=== PATIENT | female | born 1950 | race Caucasian/White ===

== ENCOUNTER → 2018-01-28 10:01 | Outpatient (CLI) | payer MEDICARE, OTHER, SELFPAY ==
--- NOTE | 2018-01-28 10:07 | RAD_ITS ---
STUDY: X-RAY - PELVIS AND LEFT HIP REASON FOR EXAM: Female, 67 years old. Chronic pain since October, history of infection 2 years ago. Scheduled for injection x-ray. TECHNIQUE: Radiological exam, hip, unilateral, with pelvis when performed; 1 view COMPARISON: None. FINDINGS: There is a non-specific bowel gas pattern. Normal visualized soft tissue structures. Mild arthropathy right sacroiliac joint.. Normal bilateral superior and inferior pubic rami. Normal pubic symphysis. Normal bilateral ischial tuberosities. Total right hip arthroplasty. There is osteoarthritic spur formation of the left acetabular rim. There is mild articular joint space narrowing of the left hip. RAD/Hip 2-3 Views with Pelvis IMPRESSION: Mild degenerative changes. Prior right total hip arthroplasty. Electronically Signed: Oralia Ann MD at 4:30 EDT , Service support ,
== END ==
PROVIDERS: Family Provider Family Medicine; PCP Family Medicine; Visit Provider Anesthesiology Pain Medicine
DX: M25.559 Pain in unspecified hip (principal)
CPT/HCPCS: 73502

== ENCOUNTER 2020-08-22 09:06 | Day surgery (SDC) | payer MEDICARE, OTHER, SELFPAY ==
--- NOTE | 2020-08-20 12:09 | PCM.HP.BLA ---
History and Physical Date of Admission: 08/22/20 HISTORY AND PHYSICAL ? Estrella Paez 1950 ? ? REFERRING PHYSICIAN: Wilmer Roth III, MD ? CHIEF COMPLAINT: Mammogram Abnormality ? HPI: The patient is a 70 year old female presents with abnormal left breast mammograms and findings of radial scar by pathology. She denies palpable breast masses. She denies nipple discharge. She denies breast pain. She denies previous breast biopsies or breast surgery. ? 07/25/2020 IMPRESSION: SUSPICIOUS FINDING - BIOPSY SHOULD BE CONSIDERED The 6 mm asymmetry in the left breast is suspicious of malignancy. ?(only seen in one view - CC) A stereotactic biopsy is recommended. ? Findings of radial scar by pathology from stereotactic breast biopsy 08/08/2020. ? PAST MEDICAL HISTORY ? Essential hypertension, benign ? ? Hypercalcemia 04/08/2017 ? Hyperlipidemia ? ? TG slightly high and LDL was high ? Hyperparathyroidism (HCC) 04/08/2017 ? IBS (irritable bowel syndrome) ? ? Mental disorder ? ? Statin intolerance ? ? tried 5 statins and severe muscle pain ? PAST SURGICAL HISTORY ? APPENDECTOMY HX ? 1973 ? COLONOSCOP W/ OR W/O [facility] SPEC ? 07/19/11 ? Colonoscopy [place] ? COLONOSCOP W/ OR W/O [facility] SPEC ? 01/19/2014 ? Colonoscopy ? COLONOSCOP W/ OR W/O [facility] SPEC ? 03/19/2017 ? Colonoscopy [facility] ? PAST SURGICAL HISTORY OF ? 1998 ? Hysterectomy ? PAST SURGICAL HISTORY OF ? 05/2008 and 10/2010 ? Right hip replacement ? PAST SURGICAL HISTORY OF ? 12/2001 ? foot surgery ? PAST SURGICAL HISTORY OF ? 06/2006 ? Arthroscopic knee surgery ? PAST SURGICAL HISTORY OF ? 09/15/2009 ? Hemorrhoidectomy, Dr Greg Darden ? PAST SURGICAL HISTORY OF ? 2016 ? Rectopexy ? SIGMOIDOSCOPY FLEX DIAG ? 06/16/15 ? Sigmoidoscopy, flexible ? TONSILLECTOMY HX ? 1961 ? TUBAL LIGATION, ? 1983 ? VITRECTOMY,MECHANICAL Right ? ? right retina detachment. ? ? Current Outpatient Medications ? zolpidem (AMBIEN) 10 mg Take 0.5-1 tablets by mouth at bedtime as needed for up to 45 days. ? venlafaxine ER (EFFEXOR XR) 37.5 mg 24 hr capsule Take 1 capsule by mouth once daily. ? amLODIPine (NORVASC) 5 mg tablet Take 1 tablet by mouth once daily. ? Hydrochlorothiazide 12.5 mg capsule Take 1 capsule by mouth once daily. ? losartan (COZAAR) 100 mg tablet Take 1 tablet by mouth once daily. ? betamethasone dipropionate (DIPROSONE) 0.05 % cream Apply 1 application to affected area twice daily. ? Magnesium Oxide 500 mg cap Take by mouth once daily. ? Cholecalciferol, Vitamin D3, 5,000 unit cap Take 1 capsule by mouth once daily. ? ? ALLERGIES: Lisinopril and Weyiaat-Gap-Ecw Reductase Inhibitors ? PERSONAL HISTORY: Social History ?Tobacco Use ? Smoking status: Never Smoker ? Smokeless tobacco: Never Used Substance Use Topics ? Alcohol use: Yes ? ? Frequency: 2-3 times a week ? ? Drinks per session: 1 or 2 ? ? Binge frequency: Never ? ? Comment: wine- occasional single glass ? Drug use: No ? FAMILY HISTORY ? Hypertension Father ? ? Ischemic Heart Disease Father ? ? from [place] at 52 ? Hypertension Mother ? ? Diabetes Mother ? ? Diabetes Paternal Grandmother ? ? Prostate Cancer Brother ? ? ? 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 has depression but has been stable helped with meds, has insomnia, denies hallucinations Obstetrical - menarche onset at age 14, , first at age 29, breast feeding 6 m, BCP use from age 21 for 10y, surgical menopause at age 49, HRT use for 10y ? PHYSICAL EXAMINATION: General: The patient is 70 year old female, well nourished, well hydrated in no acute distress. The patient is oriented to time, place, and person. VITALS: Blood pressure 138/70, pulse 70, resp. rate 16. Head ? Normocephalic. EOM intact with sclera clear and no icterus noted. Wearing glasses. Mouth with mucus membranes moist. Neck - supple with no jugular venous distention noted. Trachea is midline. No carotid bruits noted. No thyroid enlargement or thyroid nodules detected. No masses noted. Chest/breast ? no asymmetry of breasts noted, no suspicious skin lesions noted, no nipple discharge and both nipples everted, no breast masses noted Lungs ? clear to auscultation. Normal breath sounds. No rales/rhonchi/wheezing noted. No labored breathing noted, such as retractions. No cough heard. Heart ? normal S1 and S2 auscultated. No rubs/clicks/murmurs noted. Regular rate. Abdomen ? soft and benign. Normal bowel sounds No abdominal bruits noted. Difficult to determine if any masses or organomegaly due to body habitus. Extremities ? no calf tenderness noted. No pitting edema noted. Skin ? normal skin integrity. Lymph ? no cervical adenopathy detected, no supraclavicular adenopathy detected, no axillary adenopathy detected Neurological ? gait normal, no focal deficits noted Psych ? calm and appropriate RADIOLOGIC STUDIES: As Noted ? ? IMPRESSION: left breast - radial scar ? PLAN: I have explained the findings of radial scar to the patient. I have offered wide local excision (open breast biopsy via wire localization) versus continued observation with follow up mammograms in 6 months. Patient chooses the former. I have explained the procedure to the patient. I have counseled the patient as to the risks of the procedure including but not limited to: infection, bleeding, injury to any blood vessels/nerves, cosmetic deformity, scar tissue, wound infections, complications of anesthesia, etc. - she understands. The patient was offered a surgery/procedure. The provider and patient have discussed in detail the risk of exposure to and/or potential harm posed by the COVID-19 virus with having a surgery/procedure at this time versus the risk of delaying the surgery/procedure. It is not possible to know either the risk of delaying the surgery or procedure or chance of getting an infection with perfect accuracy, but a joint decision was made between the patient and the provider to proceed at this time with the scheduled surgery/procedure. She agrees to proceed. I have answered all her questions and she has no further questions. ? ? Estrella Beavers MD
[2020-08-22] VITALS (11 sets, daily range): BP systolic 114–156; BP diastolic 66–89; PULSE 78–94; RESP 14–20; TEMP 36.3–37.4; O2SAT 92–98; BMI 26.2
--- NOTE | 2020-08-22 09:30 | BI_ITS ---
SURGICAL BREAST SPECIMEN RADIOGRAPH CLINICAL: Document presence of tissue clip marker in biopsy specimen. FINDINGS: Specimen shows presence of tissue clip marker. Electronically Signed: Zachariah Chang, at 12:47 EST , Service support , BI/Breast Biopsy Specimen
[2020-08-22] MEDS: Lactated Ringers 1,000 ML 75 ML IV (09:53)
[2020-08-22] MEDS: Bupiv/Epi 0.25% 30 ML Vial (11:28)
[2020-08-22] MEDS: Cefazolin 2 GM in 0.9% Normal Saline 100 ML IV (11:32)
--- NOTE | 2020-08-22 11:34 | DCINST_ITS ---
Discharge Diet: No Restrictions Discharge Activity: Return to Normal Activity, May not drive while taking narcotic pain medications. Call your doctor if your incision/area has: Continuous Slow Oozing, Foul Smelling Discharge Call your doctor if you observe: Fever of 101 or Higher Additional Instructions: Recommended pain control regimen - May take 600 mg ibuprofen (Motrin) and then in 3-4 hours, may take 650 mg acetaminophen (Tylenol), then in 3-4 hours may take 600 mg ibuprofen, then in 3- 4 hours may take 650 mg acetaminophen and so on for 2-3 days May take narcotic pain medication for pain that is not controlled by above and at night for comfort through the night Leave dressings in place May get dressings wet in shower - do not scrub in the area and pat dry Do not soak - no tub baths/swimming If dressing appears to be soiled/open at one end/no longer sealed - may remove dressing but leave site uncovered (do not replace with any type of dressing) - leave steristrips in place - may get wet but do not scrub in the area and pat dry For breast surgery - Wear supportive bra during the day Swelling and bruising will occur in the area, ice packs to the area may provide comfort, apply as tolerated Avoid excessive bouncing/jumping for at least two weeks For hernia surgery - Swelling and bruising will occur in the area of the incision and also the scrotum Ice packs applied to the area will help, apply as long as tolerated and for your comfort Also can elevate scrotum by lying in a Lazy-boy chair position with legs up and place a folded towel across your upper thighs, place scrotum on top of towel and this will help drain the extra fluid from the scrotum back into your torso Allergies/Adverse Reactions: Allergies lisinopril Adverse Reaction (Verified 08/22/20 09:37) Unknown Onkgslp-Lmh-Zba Reductase Inhibitor Adverse Reaction (Verified 08/22/20 09:37) PT UNSURE OF REACTION muscle pain,brain fog Medications to take at Discharge Losartan Potassium 100 mg PO DAILY 03/04/17 Venlafaxine HCl [Effexor] 37.5 mg PO DAILY 03/04/17 Amlodipine Besylate [Norvasc] 5 mg PO DAILY 08/21/20 Cholecalciferol (Vitamin D3) [Vitamin D3] 1 cap PO DAILY 08/21/20 Gluc Wilkins/Chondro Wilkins A/Vit C/Mn [Glucosamine Chondroitin Tab] 1 ea PO DAILY 08/21/20 Hydrochlorothiazide 12.5 mg PO DAILY 08/21/20 Magnesium 500 mg PO QHS 08/21/20 Zolpidem Tartrate [Ambien] 10 mg PO PRN PRN 08/21/20 Primary Care Physician: Wilmer Roth III, MD [Primary Care Provider] - Please Follow Up With: Estrella Beavers MD - call if any probl ems/concerns When: to be seen in 7-10 days, please call for date and time, thank you
--- NOTE | 2020-08-22 11:36 | PCM.OPRPT ---
Report of Operation Date of Procedure: 08/22/20 Pre-Operative Diagnosis: radial scar of left breast by needle core biopsy Post-Operative Diagnosis: same Surgery/Procedure Performed:: left breast biopsy via wire localization Description of Surgical Findings:: retroareolar breast lesion Type of Anesthesia:: General Anesthesiologist: Helene Mcwilliams Specimen's removed: left breast tissue Estimated Blood Loss (mL): < 5 ml Fluids Replaced: 600 ml RL Description of Procedure: After informed consent was given, the patient was brought into the Breast Stereotactic Radiology suite. Appropriate time out protocol was followed. The patient was then placed in the prone position on the [place] stereotactic table. The patient?s left breast was placed in the opening at the head of the table. A foundry patternmaker compression mammogram was then obtained in the CC view. The marker clip that was previously placed was identified. Stereo pictures of the lesion were then taken for XYZ coordinates. The Kopans needle was then positioned where it would be entering into the patient?s breast. The skin at this site was then cleansed with a surgical skin preparation. The skin and subcutaneous tissues at this site were then infiltrated with 1% xylocaine. The Kopans needle was then positioned into the patient?s breast at the proper coordinates of depth. A foundry patternmaker film was obtained which revealed the wire in proper position. The patient was then placed in the supine position and the wire was taped into place. A unilateral mammogram in the CC and MLO view were then taken for use in the OR. The patient tolerated this portion of the procedure well and was brought to the AC awaiting surgery in the OR. The patient was then brought to the Operating Room. Appropriate time out protocol was followed. The patient was then placed on the operating table in the supine position. A wire had already been placed in the stereotactic biopsy room in the radiology department as described above. The left breast with the wire in placed was then prepped with a sterile surgical skin preparation and sterile surgical drapes were placed. The skin and subcutaneous tissues at the site of the breast lesion was then infiltrated with 1% xylocaine with epinephrine. A transverse skin incision was then made at the wire entrance site with a 15 blade scalpel and carried down through to the subcutaneous tissues. It was the mid superior to the areola area. Hemostasis was controlled with electrocautery. The breast tissue surrounding the wire was then carefully palpated out. It was carefully from the surrounding tissues using electrocautery. This was done to prevent entrance into the biopsy cavity. The patient did have a hematoma after the needle core biopsy and all attempts were made to keep this intact. The breast tissue, once from the breast, was then forwarded to the radiology department, where a specimen mammogram revealed that the marker clip was within the specimen. I personally reviewed this and made the determination that the tissue obtained was appropriately adequate. The breast tissue was then forwarded to pathology for analysis. The wound cavity was carefully examined. No further suspicious tissue was palpated or visualized. Hemostasis was carefully controlled with electrocautery. The subdermal tissues were then approximated with vicryl suture. The incision was then reapproximated close using running monocryl suture. Cavilon and steristrips were then placed to reinforce the skin closure. Sponge, needle, and instrument count were verified and correct at the time of skin closure. A sterile dressing was then applied. The patient was then brought to the Recovery Room in stable condition. - Complications none noted - Admit VTE Documentation VTE Present on Admission: Yes VTE Mechan Device Prophylaxis: SCD's
--- NOTE | 2020-08-22 12:18 | BRBX_PTH ---
PATIENT: ANN MATHIS LOC: [facility] [place] U#:[id number] AGE/SX: 70/F ROOM: RE08/22/[address]: Dr. Ann Beavers MD : 1950 BED: DIS: 08/22/2020 SPEC #: [id number] RECD: 08/22/20 12:27 STATUS: QUIRINO RECaitlin #: [id number] MINI: 08/22/20 12:[address]: Ann Beavers DEPT: SURGICAL PATHOLOGY RECD BY: Barb Rosa ENTERED: 08/22/20 13:08 SP TYPE: BREAST BX OTHR DR: Dr. Wilmer Roth III, MD Tissues: Left breast, NOS Procedures: Surgery Specimen Level V HEADER OPERATION: Breast biopsy, NL PRE-OP DIAGNOSIS: Radial scar left breast; abnormal mammogram TISSUE SUBMITTED: Left breast mass with wire MICROSCOPIC DIAGNOSIS Left breast, lumpectomy with wire localization: Fibrocystic changes and intraductal hyperplasia without atypia. Changes consistent with previous biopsy site. Focal microcalcifications. Negative for malignancy. See comment. GRAHAM:craig 08/25/20 COMMENT Vascular calcifications are also noted. Clinical correlation and appropriate follow up are necessary. MICROSCOPIC DESCRIPTION Slides are reviewed. GROSS DESCRIPTION Received fresh and postfixed in formalin is one container labeled with the patient's name and designated left breast mass. The specimen consists of a piece of fibroadipose tissue with needle localization measuring 7 x 6 x 4 cm. The specimen is not oriented. Serial sections reveal the biopsy cavity filled with blood clot measuring 3 x 1 x 0.7 cm. Sections of the rest of the specimen reveal yellow adipose cut surfaces mixed with scant fibrous area. Tool Maintenance Worker sections are submitted in 12 cassettes as follows: 1-9 - biopsy cavity with surrounding tissue, 10-12 - home office representative sections from the other areas. Sections will be submitted after additional fixation. / GRAHAM:craig 08/23/20 TC:5 [facility]: [id number]
[2020-08-22] MEDS: Ketorolac 15 MG/ML Vial IV (14:30)
[2020-08-22] MEDS: HYDROcodone Bitartrate/Apap 5/325 Tablet PO (15:38)
== END 2020-08-22 16:25 | disposition home or self-care (01) ==
LOC: SDC 09:09 → AC 09:10
PROVIDERS: PCP Family Medicine; Referring Provider Surgery; Visit Provider Surgery
PROC: (CPT 19125; principal; 2020-08-22 11:30)
DX: L90.5 Scar conditions and fibrosis of skin (principal); N62 Hypertrophy of breast; I10 Essential (primary) hypertension; E78.5 Hyperlipidemia, unspecified; K58.9 Irritable bowel syndrome, unspecified; Z82.49 Family history of ischemic heart disease and other diseases of the circulatory system; Z79.899 Other long term (current) drug therapy; Z88.8 Allergy status to other drugs, medicaments and biological substances; Z96.641 Presence of right artificial hip joint
CPT/HCPCS: 00400; 19125; 19281; 76098; 87426; 88305; 88307; C9803; J7120; A4216; J2405

== ENCOUNTER → 2022-05-06 | Outpatient (CLI) | payer MEDICARE, OTHER, SELFPAY ==
[2022-05-06 12:55] LABS: Erythrocyte Sedimentation Rate 35 mm/hr (0-30)
[2022-05-06 12:59] LABS: Magnesium 2.3 mg/dL (1.6-2.6); Thyroid Stim Hormone (TSH) 1.54 uIU/mL (0.358-3.74)
== END | disposition home or self-care (01) ==
LOC: LABSPEC 12:18
PROVIDERS: Visit Provider Registered Nurse
DX: R10.84 Generalized abdominal pain (principal); R19.7 Diarrhea, unspecified; L74.9 Eccrine sweat disorder, unspecified
CPT/HCPCS: 83735; 84443; 85652; 86140

== ENCOUNTER → 2022-05-07 | Outpatient (CLI) | payer MEDICARE, OTHER, SELFPAY ==
--- NOTE | 2022-05-07 13:58 | CT_ITS ---
EXAM: CT ABDOMEN AND PELVIS WITH INTRAVENOUS CONTRAST CLINICAL INDICATION: ABDOMINAL PAIN TECHNIQUE: Helically acquired images were obtained of the abdomen and pelvis with intravenous contrast. This CT exam was performed using one or more of the following dose reduction techniques: automated exposure control, adjustment of the mA and/or kV according to patient size, and/or use of iterative reconstruction technique. This report was created using [employer] report generation technology. CONTRAST: Oral and amp; IV Gastrografin and amp; 100mL Isovue-300 COMPARISON: None. FINDINGS: LOWER THORAX: Unremarkable. Lung bases are clear. No cardiomegaly. No significant pericardial effusion. ABDOMEN: LIVER: Unremarkable. Homogeneous. No focal mass. GALLBLADDER AND BILE DUCTS: Unremarkable. No calcified gallstones. No gallbladder distention or wall edema. No intra- or extrahepatic biliary ductal dilation. PANCREAS: Unremarkable. No focal cystic or solid mass. SPLEEN: Unremarkable. Normal size without focal cystic or solid mass. ADRENALS: Unremarkable. No nodules. KIDNEYS AND URETERS: Unremarkable. Normal renal size and position. No hydronephrosis. STOMACH AND BOWEL: Unremarkable. No stomach or bowel distention. No focal inflammatory change. PELVIS: APPENDIX: No evidence of acute appendicitis. BLADDER: Unremarkable. REPRODUCTIVE: Unremarkable as visualized. No mass. ABDOMEN and PELVIS: INTRAPERITONEAL SPACE: Unremarkable. No ascites or other fluid collection. No free air. BONES/JOINTS: Straightening of the lumbar spine. L3-4 anterolisthesis. Degenerative spine changes. Right hip replacement. Mild osteoarthrosis of the left hip. SOFT TISSUES: Unremarkable. No discrete abdominal or pelvic wall hernia. VASCULATURE: Unremarkable. Abdominal aorta is normal in caliber. LYMPH NODES: Unremarkable. No enlarged lymph nodes. CT/Abdomen/Pelvis WITH Contrast IMPRESSION: No acute findings. Degenerative changes of the lumbar spine. Electronically Signed: Shannan Alcazar MD at 18:06 EDT Reading Location ID and State: [id number] / Tel , Service support ,
[2022-05-07 16:20] LABS: CREATININE FINGERSTICK 1.1 mg/dL (0.55-1.02)
== END | disposition home or self-care (01) ==
PROVIDERS: PCP Registered Nurse; Visit Provider Registered Nurse
DX: R10.84 Generalized abdominal pain (principal); R19.7 Diarrhea, unspecified
CPT/HCPCS: 74177; Q9967